=== PATIENT | female | born 1955 | race Caucasian/White ===

== ENCOUNTER 2023-01-08 11:40 | Emergency (ER) | payer OTHER, BC ==
[2023-01-08 12:26] VITALS: BP 146/77; PULSE 73; RESP 18; TEMP 98; BMI 27.4
[2023-01-08 13:03] LABS: HEMATOCRIT 43.5 % (32.4-45.2); HEMOGLOBIN 14.6 G/dL (10.7-15.3); MCHC 33.5 g/dl (32.0-36.0); MEAN CELL VOLUME 95.7 fl (80-96); MEAN PLT VOLUME 8.6 fl (7.5-11.1); RBC 4.55 10^6/uL (3.60-5.2); RDW 13.2 % (11.6-15.6)
[2023-01-08 13:05] LABS: PLATELET ESTIMATE ADEQUATE
[2023-01-08 13:09] LABS: ALBUMIN 4.1 g/dl (3.4-5.0); BILIRUBIN,TOTAL 0.5 mg/dl (0.2-1); BLOOD UREA NITROGEN 19.7 mg/dl (7-18); CALCIUM 8.7 mg/dl (8.5-10.1); CREATININE 0.6 mg/dl (0.6-1.3); SGOT/AST 32.5 U/L (15-37); TOT PROT 6.5 g/dl (6.4-8.2)
[2023-01-08 13:13] LABS: POTASSIUM 4.8 mmol/L (3.5-5.1)
== END 2023-01-08 14:58 | disposition home or self-care (01) ==
LOC: FER 11:40
DX: H53.123 Transient visual loss, bilateral (principal); R07.89 Other chest pain; H53.2 Diplopia
CPT/HCPCS: 36415; 70496-TC; 70498-TC; 71046-TC-FY; 80053; 84484; 85027; 93005; 99285-25; Q9967

== ENCOUNTER 2023-11-17 17:02 | Emergency (ER) | payer OTHER, BC ==
[2023-11-17 17:53] VITALS: BP 124/76; PULSE 89; RESP 18; TEMP 97.7; BMI 26.7
[2023-11-17 18:04] LABS: HEMATOCRIT 40.2 % (32.4-45.2); HEMOGLOBIN 13.5 G/dL (10.7-15.3); MCH 32.5 pg (25.7-33.7); MCHC 33.7 g/dl (32.0-36.0); MEAN CELL VOLUME 96.6 fl (80-96); MEAN PLT VOLUME 8.6 fl (7.5-11.1); RBC 4.16 10^6/uL (3.60-5.2); WHITE BLOOD COUNT 8.5 10^3/uL (4.0-10.8)
[2023-11-17 18:17] LABS: ALBUMIN 4.1 g/dl (3.4-5.0); BILIRUBIN,TOTAL 0.8 mg/dl (0.2-1); CREATININE 0.6 mg/dl (0.6-1.3); POTASSIUM 3.9 mmol/L (3.5-5.1); TOT PROT 6.3 g/dl (6.4-8.2)
[2023-11-17 18:23] LABS: PLATELET ESTIMATE ADEQUATE
[2023-11-17] MEDS ORDERED: ACETAMINOPHEN INJECTION 100 ML IVPB ONE (18:25)
[2023-11-17] MEDS: ACETAMINOPHEN 1000 MG/100 ML BAG IVPB ONE (18:30)
[2023-11-17] MEDS: SODIUM CHLORIDE 0.9% 500 ML INFUS.BAG IV ONE (18:48)
[2023-11-17] MEDS ORDERED: PIPERACILLIN/TAZOBACTAM 4.5 GM VIAL IVPB ONE (20:11)
[2023-11-17] MEDS: PIPERACILLIN/TAZOB 4.5 GM 4.5 GM in DEXTROSE 5%-WATER 100 ML IVPB ONE (20:13)
== END 2023-11-17 20:54 | disposition left against medical advice (07) ==
LOC: FER 17:02
DX: K55.049 Acute infarction of large intestine, extent unspecified (principal); R10.31 Right lower quadrant pain
CPT/HCPCS: 36415; 74177-TC; 80053; 81003; 81015; 83605; 85027; 86850; 86900; 86901; 87086; 99285-25; J0131